=== PATIENT | female | born 1945 | race Caucasian/White ===

== ENCOUNTER → 2016-11-08 | Outpatient (CLI) | payer MEDICARE, MEDICAID ==
[~2016-11-08] MED LIST: ASPIRIN81 M1 PO; HYDR25T; HYDR25T PO; LOPRESSOR25 MG PO; MULTIVITAMIN1 CTB PO
== END | disposition home or self-care (01) ==
LOC: US 14:45
DX: R55 Syncope and collapse (principal)

== ENCOUNTER → 2016-11-18 | Outpatient (CLI) | payer MEDICARE, MEDICAID | END | disposition home or self-care (01) | LOC: CARD 02:07 | DX: I34.0 Nonrheumatic mitral (valve) insufficiency (principal); R55 Syncope and collapse; I07.1 Rheumatic tricuspid insufficiency ==

== ENCOUNTER → 2016-12-15 | Outpatient (CLI) | payer MEDICARE, MEDICAID ==
[~2016-12-15] MED LIST changes: +ATIVAN0.5 MG PO; +CALCIUM 500 +1 EAC1 PO; +FLOVENT HFA12 GM INH; +GEMFIBROZIL600 MG PO; +MECLIZINE HCL25 M2 PO; +METFORMIN500 MG PO; +MOTRIN 600 MG E4 TAB PO; +NORCO 5-325 TA1 EACH PO; +RALOXIFENE HCL60 MG PO; +VITAMIN D50000 I3 PO
--- NOTE | ~2016-12-15 | ST ---
[place], [place] EXERCISE STRESS TEST REPORT NAME: Ajit [facility] #: [id number] UNIT #: [id number] ROOM: DOCTOR: LAURO DELEON MD BIRTHDATE: [birth year] DOS: 12/15/2016 PROCEDURE: Lexiscan stress EKG. INDICATION: Precordial chest pain. REFERRING PHYSICIAN: Dr. Velázquez. The patient underwent standard protocol Lexiscan stress EKG. The patient's baseline EKG showed normal sinus rhythm, with nonspecific ST-T wave changes. The patient's baseline heart rate was 68 with a blood pressure of 130/70. The patient's peak heart rate was 101, with a blood pressure 158/68. The patient had no chest pain, no EKG changes. No arrhythmias. SUMMARY OF FINDINGS: 1. Unremarkable Lexiscan stress EKG. 2. Please see separate report for perfusion scan results. LAURO DELEON MD CM:STRESS:EXERCISE STRESS TEST REPORT [id number] LAURO DELEON MD
== END | disposition home or self-care (01) ==
LOC: CARD 00:23
DX: R07.9 Chest pain, unspecified (principal); R07.2 Precordial pain

== ENCOUNTER → 2018-08-22 | Outpatient (CLI) | payer MEDICARE, MEDICAID | END | disposition home or self-care (01) | LOC: RAD 13:23 | DX: M81.0 Age-related osteoporosis without current pathological fracture (principal); M19.90 Unspecified osteoarthritis, unspecified site; Z78.0 Asymptomatic menopausal state; Z90.710 Acquired absence of both cervix and uterus ==

== ENCOUNTER → 2020-09-01 | Outpatient (CLI) | payer OTHER, MEDICAID | END | disposition home or self-care (01) | LOC: RAD 15:01 | PROVIDERS: ATTEND Nurse Practitioner Family | DX: M17.11 Unilateral primary osteoarthritis, right knee (principal); M25.761 Osteophyte, right knee ==

== ENCOUNTER 2022-09-21 12:44 | Emergency (ER) | payer OTHER, MEDICAID ==
[~2022-09-21] VITALS: Ht 157.4 cm; Wt 83.0 kg
[2022-09-21] MEDS ORDERED: Bactroban Oint22 GM T (15:45)
[2022-09-21] MEDS ORDERED: AMOX-CLAV 875-1 EACH PO (15:45)
[2022-09-21] MEDS ORDERED: PROBIOTIC250 MG PO (16:07)
== END 2022-09-21 15:31 | disposition home or self-care (01) ==
LOC: ED 12:44
DX: S61.411A Laceration without foreign body of right hand, initial encounter (principal); Z88.8 Allergy status to other drugs, medicaments and biological substances; Z90.89 Acquired absence of other organs; Z90.710 Acquired absence of both cervix and uterus; W54.0XXA Bitten by dog, initial encounter; Y93.89 Activity, other specified; Y92.89 Other specified places as the place of occurrence of the external cause; Y99.8 Other external cause status

== ENCOUNTER → 2023-10-29 | Outpatient (CLI) | payer OTHER, MEDICAID ==
[~2023-10-29] MED LIST changes: +AMOX-CLAV 875-1 EACH PO; +ATORVASTATIN CA20 M1 PO; +ATORVASTATIN CA40 M1 PO; +Bactroban Oint22 GM T; +DICLOFENAC SOD50 MG PO; +IOHEXOL 300 MG/ML 100 ML VIAL IV ONE; +OZEMPIC0.25 MG/02 SQ; +PROBIOTIC250 MG PO
== END | disposition home or self-care (01) ==
LOC: CT 01:50
PROVIDERS: ATTEND Nurse Practitioner
DX: K59.00 Constipation, unspecified (principal); K76.0 Fatty (change of) liver, not elsewhere classified; N20.0 Calculus of kidney; I25.10 Atherosclerotic heart disease of native coronary artery without angina pectoris; Z90.49 Acquired absence of other specified parts of digestive tract; N28.1 Cyst of kidney, acquired

== ENCOUNTER → 2023-11-16 | Outpatient (CLI) | payer OTHER, MEDICAID ==
[~2023-11-16] MED LIST changes: -IOHEXOL 300 MG/ML 100 ML VIAL IV ONE
[2023-11-16 12:39] LABS: BASO # 0.1 10*3/uL (0.0-0.1); BASO % 0.7 % (0.0-1.0); EOS # 0.1 10*3/uL (0.0-0.4); EOS % 1.4 % (1.0-4.0); HEMATOCRIT 40.4 % (37.0-47.0); LYMPH # 2.1 10*3/uL (1.3-4.4); LYMPH % 24.6 % (27.0-41.0); MEAN CORPUSCULAR HGB 26.8 pg (27.0-31.0); MEAN CORPUSCULAR HGB CONC 31.2 g/dl (33.0-37.0); MEAN PLATELET VOLUME 8.8 fl (9.6-12.3); MONO # 0.4 10*3/uL (0.1-1.0); MONO % 4.9 % (3.0-9.0); NEUT # 5.9 10*3/uL (2.3-7.9); NEUT % 67.9 % (47.0-73.0); PLATELET COUNT AUTOMATED 273 10*3/uL (130-400); RED CELL DISTRI WIDTH 13.8 % (0-14.5); WHITE BLOOD COUNT 8.6 10*3/uL (4.8-10.8)
[2023-11-16 12:41] LABS: BILIRUBIN Negative (Negative); BLOOD Trace-Intact (Negative); CLARITY Clear (Clear); COLOR Yellow (Yellow); GLUCOSE Negative (Negative); KETONE Negative (Negative); LEUKO ESTERASE 3+ (Negative); NITRITE Negative (Negative); SPECIFIC GRAVITY 1.015 (1.001-1.030); UROBILINOGEN 0.2 E.U./dl (0.0-1.0)
[2023-11-16 12:54] LABS: BACTERIA 1+; RBC 0-2 rbc/hpf (0-2); WBC TNTC wbc/hpf (0-5)
[2023-11-16 13:00] LABS: ACT PARTIAL THROMBO TIME 27.3 SECONDS (20.0-32.1)
[2023-11-16 13:07] LABS: ALKALINE PHOSPHATASE 85 U/L (46-116); BUN 12 mg/dl (9-23); CHLORIDE 99 mmol/L (98-107); POTASSIUM 3.6 mmol/L (3.4-5.1); SGPT/ALT 21 U/L (5-49); TOTAL PROTEIN 7.3 gm/dL (6.0-8.0)
== END | disposition home or self-care (01) ==
LOC: LAB 11:56
PROVIDERS: ATTEND Urology
DX: I11.9 Hypertensive heart disease without heart failure (principal); E11.9 Type 2 diabetes mellitus without complications; Z90.49 Acquired absence of other specified parts of digestive tract; I70.0 Atherosclerosis of aorta; M19.012 Primary osteoarthritis, left shoulder; M19.011 Primary osteoarthritis, right shoulder; J98.4 Other disorders of lung

== ENCOUNTER → 2023-12-12 | Outpatient (CLI) | payer OTHER, MEDICAID | LOC: RAD 12-07 02:32 | PROVIDERS: ATTEND Urology | DX: N20.0 Calculus of kidney (principal) ==

== ENCOUNTER → 2023-12-27 | Outpatient (CLI) | payer OTHER, MEDICAID | END | disposition home or self-care (01) | LOC: CT 13:49 | PROVIDERS: ATTEND Urology | DX: N20.0 Calculus of kidney (principal); D73.89 Other diseases of spleen; N28.1 Cyst of kidney, acquired; M51.37 Other intervertebral disc degeneration, lumbosacral region; Z90.49 Acquired absence of other specified parts of digestive tract ==

== ENCOUNTER → 2024-04-09 | Outpatient (CLI) | payer OTHER, MEDICAID | END | disposition home or self-care (01) | LOC: CT 13:49 | PROVIDERS: ATTEND Urology | DX: K57.30 Diverticulosis of large intestine without perforation or abscess without bleeding (principal); R10.9 Unspecified abdominal pain; R20.0 Anesthesia of skin; K76.0 Fatty (change of) liver, not elsewhere classified; N26.1 Atrophy of kidney (terminal); N20.0 Calculus of kidney ==

== ENCOUNTER → 2024-04-23 | Outpatient (CLI) | payer OTHER, MEDICAID | END | disposition home or self-care (01) | LOC: RAD 03-16 08:00 | PROVIDERS: ATTEND Nurse Practitioner | DX: Z13.820 Encounter for screening for osteoporosis (principal); Z78.0 Asymptomatic menopausal state ==